=== PATIENT | female | born 1950 | race Caucasian/White ===

== ENCOUNTER → 2016-05-21 | Outpatient (CLI) | payer BC, MEDICARE ==
[~2016-05-21] MED LIST: CALC-64 PO; CYAN100T PO; LISI-126 PO; MAXZIDE PO; RANI150T7 PO
--- NOTE | 2016-05-21 13:44 | DI ---
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 Velocities in cm/sec - validated velocity measurements with angiographic measurements, velocity criteria are extrapolated from diameter data as defined by the Society of Radiologists in Ultrasound Consensus Conference Radiology 2003; 229;340-346. RIGHT: PSV ICA 37 EDV ICA 12 PSV CCA 48 EDV CCA 13 SVR 0.80 PSV ECA 72 ICA Diameter reduction 0% (<0.8)% LEFT: PSV ICA 33 EDV ICA 10 PSV CCA 59 EDV CCA 13 SVR 0.60 PSV ECA 44 ICA Diameter reduction 0% (<0.8)% The right vertebral artery is patent with cephalic flow. The left vertebral artery is patent with cephalic flow. No atherosclerotic plaque. No velocity elevation. Normal waveforms. IMPRESSION: Normal exam. No hemodynamically significant carotid stenosis. .
== END ==
LOC: IMA 12:26
PROVIDERS: ATTEND Nurse Practitioner
DX: I77.9 Disorder of arteries and arterioles, unspecified (principal)